=== PATIENT | female | born 1990 | race Asian ===

== ENCOUNTER 2019-07-27 10:52 | Emergency (ER) | payer BC, MEDICAID ==
[~2019-07-27] VITALS: Ht 182.9 cm; Wt 115.7 kg
[~2019-07-27 10:52] MED LIST: ALBUPOW26; BUDE160A3
[2019-07-27 13:46] VITALS: BP 135/92
[2019-07-27 14:38] LABS: Urine Bacteria NONE SEEN /hpf (None Seen); Urine Blood Negative /uL (Negative); Urine Specific Gravity 1.018 (1.001-1.035); Urine WBC 1 /hpf (0 - 5)
== END 2019-07-27 15:35 | disposition home or self-care (01) ==
LOC: ER 10:52
DX: J11.1 Influenza due to unidentified influenza virus with other respiratory manifestations (principal); R51 Headache; R42 Dizziness and giddiness
CPT/HCPCS: 71046; 81001; 81025; 87804